=== PATIENT | female | born 1960 | race Caucasian/White ===

== ENCOUNTER → 2016-04-20 | Day surgery (SDC) | payer OTHER ==
[~2016-04-20] VITALS: Ht 172.7 cm; Wt 64.4 kg
[~2016-04-20] MED LIST: ATIVAN1 M1 PO; BETASERON0.3 M1; LISINOPRIL-HCT1 EACH PO
--- NOTE | 2016-04-20 12:42 | Operative Report ---
Operative/Inv Procedure Report Surgery Date: 04/20/16 Name of Procedure: Left breast biopsy with wire localization Pre-Operative Diagnosis: Left breast mass, discordant needle biopsy Post-Operative Diagnosis: Same Estimated Blood Loss: scant Surgeon/Critical Care Transport Nurse: SONALI KMI MD Anesthesia: local monitored anesthesi Specimens: Left breast biopsy Operative/Procedure Note Note: Patient is brought to the operating room on 04/20/2016 and placed supine on the table. Preoperative wire localization was performed and those films were reviewed. Given 2 g of Ancef in the left breast was prepped and draped in a sterile fashion using ChloraPrep. Local anesthesia of 1% lidocaine mixed half percent Marcaine was given, and a curvilinear incision was made in the circumareolar position. The wire was brought into the incision and the area of concern was grasped using an Allis clamp. She was very dense in that area. The firm breast tissue was excised and marked for orientation using margin map. Intraoperative x-ray confirmed the presence of the clip in the specimen. Hemostasis was adequate. Deep tissue was approximated using interrupted Vicryl sutures, and the skin was closed using a running Monocryl subcuticular stitch. Steri-Strips and sterile dressings were applied, and the patient was transferred to the recovery room in satisfactory condition having tolerated the procedure well
--- NOTE | 2016-04-20 12:46 | MAMMOGRAPHY REPORT ---
EXAMINATION: MM PREOPERATIVE LOCALIZATION BREAST, LEFT CLINICAL INFORMATION: A 56-year-old female with a sonographic and mammographic suspicious abnormality at the retroareolar region of the left breast, initially seen on 03/16/2016. Subsequent ultrasound-guided biopsy showed collagenous fibrosis, and pseudoangiomatous stromal hyperplasia. This was thought to be discordant and surgical excisional biopsy was recommended. Preoperative needle localization is requested. Patient has a personal history of left-sided infiltrating ductal carcinoma diagnosed on 10/20/2013, status post lumpectomy in May 2014. Also had a benign right-sided excisional biopsy for fibroadenoma at age 38. TECHNIQUE: After the details of the procedure, as well as the risks, benefits and alternatives to the procedure, were explained to the patient in detail, and all of her questions were answered, preoperative needle localization was performed. Mammographic imaging of the left breast in the LM projection confirmed the presence of a tissue marker (ribbon-shaped metallic clip) at the site of the prior ultrasound-guided biopsy at the retroareolar region. The skin of the left breast was then cleansed with sterile solution. Using mammographic guidance, aseptic technique and 2% 6 mL lidocaine for local anesthesia, a 7 cm [employer] needle-wire system was advanced into the breast from a lateral approach. Orthogonal views were then obtained. Final adjustments of the needle tip position were made, and the wire deployed. The needle was taken out. The patient tolerated the procedure well, and was discharged from the department of radiology in good stable condition. The images were appropriately labelled. A worksheet was appropriately filled out and was sent with the patient to the OR. IMPRESSION: Successful mammographically-guided preoperative needle localization of the left breast retroareolar mass. EXAMINATION: MM NEEDLE LOCALIZATION SPECIMEN FROM BREAST, LEFT: TECHNIQUE: Single radiograph of the excised breast tissue was performed. FINDINGS: The specimen shows the hookwire is delivered intact. The biopsy clip marker is also identified in the specimen IMPRESSION: Successful needle localization of the left-sided retroareolar mass. Results were called to Dr. Moody in the operating room at the time of imaging. The histology report is pending.
== END ==
LOC: STS 01:58 → CBW.IIU 08:00 → CBW.MAMMO 08:30
DX: N60.92 Unspecified benign mammary dysplasia of left breast (principal); Z85.3 Personal history of malignant neoplasm of breast; Z87.891 Personal history of nicotine dependence
CPT/HCPCS: 88307; J0131; J0690; J2001; J2250

== ENCOUNTER 2016-05-28 00:20 | Emergency (ER) | payer OTHER ==
[~2016-05-28] VITALS: Ht 172.7 cm; Wt 64.4 kg
[~2016-05-28 00:20] MED LIST changes: -ATIVAN1 M1 PO
[2016-05-28 00:33] VITALS: BP 160/97
--- NOTE | 2016-05-28 00:47 | ED EAR COMPLAINT ---
History of Present Illness General Chief Complaint: Ear Complaints Stated Complaint: L EAR PAIN Source: patient Exam Limitations: no limitations Vital Signs & Intake/Output Vital Signs & Intake/Output Vital Signs Date Time Temp Pulse Resp B/P Pulse O2 O2 Flow FiO2 Ox Delivery Rate 05/28 0033 98.5 98 18 160/97 98 Room Air Allergies Coded Allergies: NO KNOWN ALLERGIES (04/17/16) Reconcile Medications Interferon Beta-1b (Betaseron) 0.3 MG KIT 1 INJ MS (Reported) Lisinopril/Hydrochlorothiazide (Lisinopril-Hctz 20-12.5 MG Tab) 20 MG-12.5 MG TABLET 1 TAB PO DAILY HEART (Reported) Lorazepam (Ativan) 1 MG TABLET 1 TAB PO BID PRN ANXIETY/INSOMNIA/TINNITUS TEN...[id number] Triage Note: PT TO TRIAGE C/O L EAR RINGING. PT STATES SHE HAS MS, WENT TO DOCTOR, RECIEVED RX FOR PREDNISONE AND BENADRYL. PT DENIES PAIN, DENIES DIZZINESS. PT STATES SHE IS ON HER LAST DAY OF PREDNISONE TODAY AND TOOK THE BENADRYL BEFORE BED BUT WOKE UP WITH WORSE RINGING. Triage Nurses Notes Reviewed? yes Onset: Gradual Duration: day(s): Timing: recent history Injury Environment: home Severity: moderate No Modifying Factors: none Modifying Factors: Worsens With: other (no meds have helped). Associated Symptoms: tinnitus HPI: 56-year-old woman history multiple sclerosis presents with 6 day history of left here ringing. She states that her primary care doctor gave her prednisone. Her MS doctor gave her prescription of azithromycin and Benadryl. She states that the ringing in her ears has persisted. She has a mild sinus congestion. She has no ear pain headache fever chills numbness or tingling. She states that her MS is well-controlled at baseline. She is otherwise well. She asked for medicine to help her sleep and to help with her anxiety, "because this ringing in my ears really bothers me." Past History Travel History Traveled to [place] past 21 day No Medical History Any Pertinent Medical History? see below for history Neurological: multiple sclerosis Cardiovascular: hypertension Surgical History Surgical History: none Psychosocial History Who do you live with Spouse What is your primary language Czech Tobacco Use: Current Not Daily Family History Hx Contributory? No Review of Systems Review of Systems Constitutional: Reports: no symptoms. EENTM: Reports: no symptoms. Respiratory: Reports: no symptoms. Cardiovascular: Reports: no symptoms. GI: Reports: no symptoms. Genitourinary: Reports: no symptoms. Musculoskeletal: Reports: no symptoms. Skin: Reports: no symptoms. Neurological/Psychological: Reports: no symptoms. Hematologic/Endocrine: Reports: no symptoms. Immunologic/Allergic: Reports: no symptoms. All Other Systems: Reviewed and Negative Physical Exam Physical Exam General Appearance: well developed/nourished, mild distress Head: atraumatic Eyes: Bilateral: normal appearance, PERRL, EOMI. Ears: Bilateral: canal normal, Tympanic normal. Nose: normal inspection Mouth/Throat: normal mouth inspection, pharynx normal Neck: normal inspection, supple Cardiovascular/Respiratory: normal breath sounds, regular rate/rhythm Back: normal inspection Neurologic/Psych: awake, alert, oriented x 3, normal mood/affect Skin: intact, normal color, warm/dry Progress Differential Diagnoses I considered the following diagnoses in my evaluation of the patient: tinnitus vs ms vs other. Plan of Care: Current Medications Sig/Floyd Start time Last Medication Dose Stop Time Status Admin Lorazepam 1 MG ONE ONE 05/28 99 UNVr (Ativan) 05/28 010 Initial ED EKG: none Departure Departure Disposition: HOME OR SELF CARE Condition: Stable Clinical Impression Primary Impression: Tinnitus Referrals: IRMA WARD,GUY Luo (PCP/Family) Departure Forms: Customer Survey General Discharge Information Prescriptions: Current Visit Scripts Lorazepam (Ativan) 1 TAB PO BID PRN ANXIETY/INSOMNIA/TINNITUS #10 TAB TEN...[id number] Comments pt encouraged to follow up with ent and with her MS physician.
[2016-05-28] MEDS ORDERED: ATIVAN1 M1 PO (00:49)
== END 2016-05-28 01:18 ==
LOC: ERH 00:20
DX: H93.12 Tinnitus, left ear (principal)